=== PATIENT | male | born 1970 | race Caucasian/White ===

== ENCOUNTER 2020-11-05 21:04 | Emergency (ER) | payer OTHER ==
[~2020-11-05] VITALS: Ht 175.3 cm; Wt 104.3 kg
--- NOTE | 2020-11-05 21:10 | NUR ---
PT BIBSELF C/O MIDSTERNAL CHEST PAIN AND L UPPER EXT WEAKNESS X40 MIN VP STRATEGIC PLANNING. PT DENIES SOB, NAUSEA, VOMITTING, HEADACHE. PT AAOX4. AMBULATORY WITH STEADY GAIT. VITAL SIGNS STABLE. RESPRIATIONS EVEN AND UNLABORED. NO ACUTE DISTRESS NOTED AT THIS TIME. PLACED IN GOWN AND ON CONTINUOUS ELECTRONIC SECURITY SPECIALIST AND PULSE OX, WILL CONTINUE TO MONITOR
--- NOTE | 2020-11-05 21:15 | NUR ---
IV INITIATED RAC 18G. LABS DRAWN FROM SITE. GLOBAL COMPENSATION MANAGER AT BEDSIDE FOR COLLECTION. IV INTACT AND PATENT PLACED ON SALINE LOCK
--- NOTE | 2020-11-05 21:23 | NUR ---
RADIOLOGY AT BEDSIDE FOR CXR
[2020-11-05 21:28] LABS: BASOPHILS % (AUTO) 0.6 % (0.0-2.0); EOSINOPHILS % (AUTO) 1.1 % (0.0-6.0); HEMATOCRIT 45 % (39-51); HEMOGLOBIN 14.7 g/dL (13.5-17.5); LYMPHOCYTES # (AUTO) 1.8 /CMM (0.8-4.8); LYMPHOCYTES % (AUTO) 25.6 % (20.0-44.0); MEAN CORPUSCULAR HGB CONC 33 g/dl (31.0-36.0); MEAN CORPUSCULAR VOLUME 79 fL (80-96); MONOCYTES # (AUTO) 0.5 /CMM (0.1-1.30); MONOCYTES % (AUTO) 6.9 % (2.0-12.0); NEUTROPHILS # (AUTO) 4.6 /CMM (1.8-8.9); NEUTROPHILS % (AUTO) 65.8 % (43.0-81.0); PLATELET COUNT (AUTO) 213 /CMM (150-450); RED BLOOD CELL COUNT(AUTO) 5.74 MIL/uL (4.5-6.0); WHITE BLOOD COUNT (AUTO) 7.1 K/uL (4.3-11.0)
[2020-11-05 21:53] LABS: ALANINE AMINOTRANSFERASE 41 U/L (12-78); ALKALINE PHOSPHATASE 77 U/L (46-116); ASPARTATE AMINOTRANSFERASE 21 U/L (15-37); B-TYPE NATRIURETIC PEPTIDE 62 PG/ML (0-125); BILIRUBIN,DIRECT 0.1 mg/dL (0.0-0.2); BILIRUBIN,TOTAL 0.5 mg/dL (0.2-1.0); CALCIUM, SERUM 9.2 mg/dL (8.5-10.1); CARBON DIOXIDE 23 mmol/L (21-32); CHLORIDE 106 mmol/L (98-107); CREATININE 0.9 mg/dL (0.6-1.3); GLUCOSE 142 mg/dL (74-106); POTASSIUM 3.2 mmol/L (3.5-5.1); SODIUM SERUM 143 mmol/L (136-145); TOTAL PROTEIN, SERUM 7.6 g/dL (6.4-8.2); UREA NITROGEN, BLOOD 19 mg/dL (7-18)
[2020-11-05] MEDS ORDERED: NITROGLYCERIN 0.4 MG/TAB BOTTLE ONE (22:16)
[2020-11-05] MEDS ORDERED: ASPIRIN 325 MG TABLET ONE (22:16)
[2020-11-05] MEDS: ASPIRIN 325 MG TABLET PO ONE (22:19)
[2020-11-05] MEDS: NITROGLYCERIN 0.4 MG/TAB BOTTLE SL ONE (22:23)
--- NOTE | 2020-11-05 22:24 | NUR ---
Patient does not wish to proceed with medical care recommended by Dr. Grant. Patient given information related to possible complications, up to and including , which could occur as a result of leaving the hospital at this time. Patient verbalizes understanding of risks involved due to leaving against medical advice. Patient has signed AMA form. IV removed. Catheter intact and site benign. Pressure and 4x4 applied to site. No bleeding noted.Pt ambulatory with a steady gait
[2020-11-05 22:25] VITALS: BP 135/67
== END 2020-11-05 22:26 | disposition left against medical advice (07) ==
LOC: ER 21:04
DX: R07.89 Other chest pain (principal); Z53.29 Procedure and treatment not carried out because of patient's decision for other reasons; I25.2 Old myocardial infarction
CPT/HCPCS: 36415; 71045-TC; 80048-TC; 80076-TC; 83880; 84484-TC; 85025-TC; 85730-TC